=== PATIENT | female | born 1980 | race Caucasian/White ===

== ENCOUNTER 2017-08-28 13:19 | Emergency (ER) | payer BC ==
[2017-08-28] MEDS ORDERED: solu-MEDROL 125 MG IV ONE (13:21)
[2017-08-28] MEDS ORDERED: Pepcid 20 MG VIAL IV ONE ×2 (13:21→13:25)
[2017-08-28] MEDS ORDERED: Sodium Chloride 0.9% 1000 ML 1,000 ML IV STA (13:21)
[2017-08-28] MEDS ORDERED: BENADRYL 50 MG/ML IV ONE (13:21)
[2017-08-28] MEDS ORDERED: BENADRYL 50 MG/ML ONE (13:25)
[2017-08-28] MEDS ORDERED: solu-MEDROL 125 MG ONE (13:25)
[2017-08-28] MEDS ORDERED: Sodium Chloride 0.9% 1000 ML 1,000 ML ONE (13:25)
[2017-08-28 13:27] VITALS: O2SAT 100
[2017-08-28 13:35] LABS: Mean Cell Volume 84.8 fl (78-100); Mean Corpuscular Hemoglobin 27.5 pg (26-32); Mean Platelet Volume 9.8 fl (6-9.5); Platelet Count 405 K/mm3 (150-450); Red Blood Count 4.99 M/mm3 (4.1-5.4); Red Cell Distribution Width 14.3 % (11.5-14.0); White Blood Count 16.9 K/mm3 (4.0-10.5)
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
[2017-08-28 14:01] LABS: ANION GAP 14.2 MEQ/L (5-15); BLOOD UREA NITROGEN 11 mg/dL (9-20); CHLORIDE 106 mEq/L (98-107); Carbon Dioxide 25.6 mEq/L (21-32); Glucose 118 MG/DL (70-110); Potassium 3.1 mEq/L (3.5-5.1); SODIUM 143 mEq/L (136-145)
[2017-08-28 14:15] LABS: Platelet Estimate NORMAL (NORMAL); Total Cells Counted 100
[2017-08-28 14:25] VITALS: BP 122/76; PULSE 88
== END 2017-08-28 14:25 | disposition home or self-care (01) ==
LOC: ED 13:19
DX: T78.2XXA Anaphylactic shock, unspecified, initial encounter (principal)
CPT/HCPCS: 36000; 36415; 80048; 84703; 85025; 93041; 96360; 96374; 96375; 99284; J1200; J2930

== ENCOUNTER 2019-03-26 20:05 | Emergency (ER) | payer BC ==
[2019-03-26] MEDS ORDERED: TORAdol 30 mg Injection ONE ×2 (23:11→23:13)
[2019-03-26] MEDS: TORAdol 30 mg Injection IM ONE (23:13)
--- NOTE | 2019-03-26 23:53 | ERPHSYRPT ---
- History of Present Illness Source: patient Exam Limitations: no limitations Patient Subjective Stated Complaint: got dizzy and lightheaded, everything went fuzzy and fell on her hip today around 1930. fell directly on left hip, having lots of pain there. C/o dizziness off and on x2 weeks. Triage Nursing Assessment: lungs clear, no distress noted. heart tones regular , abd soft with active bs x4 quad. Pulses normal to lt dorsalis pedis. Pt c/o lt hip pain when sitting and rotated externall. Lt leg slightly shorter than right, but pt states that this is normal from femur fx. Physician History: Pt is a 39 y/o female that felt a little dizzy today, and she fell on her L hip. Secondary to multiple fractures in the past, including Femur fx on the L, the pt presented to the ED. Pt complains of pain to palpation of the L hip, and she has discomfort with ambulation and bearing weight on the L. Method of Injury: fell Occurred: just prior to arrival Quality: constant, sharpness, throbbing Lower Extremities Pain: hip: left (pain and decrease ROM) Modifying Factors: Improves With: cold therapy, immobilization, pain medication Associated Symptoms: none Allergies/Adverse Reactions: ondansetron HCl [From Zofran] Allergy (Mild, Verified 02/28/14 09:47) Nausea and Vomiting Penicillins Allergy (Mild, Verified 02/28/14 09:47) Hives Sulfa (Sulfonamide Antibiotics) Allergy (Mild, Verified 02/28/14 09:47) Hives cholestyramine [From Questran] Allergy (Verified 08/28/17 13:28) Shortness of Breath sucrose [From Questran] Allergy (Verified 08/28/17 13:28) Shortness of Breath Home Medications: Duloxetine HCl 30 mg [Cymbalta 30 MG Capsule] 30 mg PO BID 12/10/13 [ History] Hydroxychloroquine Sulfate [Plaquenil] 150 mg PO DAILY 08/28/17 [History] Clonazepam 1 mg PO HS 03/26/19 [History] Cyclobenzaprine HCl [Flexeril] 10 mg PO TID PRN 03/26/19 [History] Ergocalciferol (Vitamin D2) [Vitamin D] 50,000 units PO WEEKLY 03/26/19 [History ] Gabapentin 300 mg PO BID 03/26/19 [History] Gabapentin 600 mg PO HS 03/26/19 [History] Prednisone 5 mg [Deltasone 5 mg] 5 mg PO DAILY 03/26/19 [History] Hx Tetanus, Diphtheria Vaccination/Date Given: Yes Hx Influenza Vaccination/Date Given: No Hx Pneumococcal Vaccination/Date Given: No Immunizations Up to Date: Yes - Review of Systems Constitutional: No Fever, No Chills Eyes: No Symptoms Ears, Nose, & Throat: No Symptoms Respiratory: No Cough, No Dyspnea Cardiac: No Chest Pain, No Edema, No Syncope Abdominal/Gastrointestinal: No Abdominal Pain, No Nausea, No Vomiting, No Diarrhea Musculoskeletal: Arthralgias, Joint Pain (of the hip and pelvis on the L), Myalgias Skin: No Rash Neurological: No Dizziness, No Focal Weakness, No Sensory Changes - Past Medical History Pertinent Past Medical History: Yes Neurological History: No Pertinent History ENT History: No Pertinent History Cardiac History: No Pertinent History Respiratory History: No Pertinent History Endocrine Medical History: No Pertinent History Musculoskeletal History: Arthritis, Fractures GI Medical History: Gallbladder Disease History: No Pertinent History Psycho-Social History: Anxiety, Depression Female Reproductive Disorders: Abnormal Uterine Bleeding, Menstrual Problems Other Medical History: majority of cervix removed, lupus - Past Surgical History Past Surgical History: Yes Neuro Surgical History: No Pertinent History Cardiac: No Pertinent History Respiratory: No Pertinent History Gastrointestinal: Cholecystectomy Genitourinary: No Pertinent History Musculoskeletal: Orthopedic Surgery Female Surgical History: Section, Tubal Ligation Other Surgical History: breast biopsy, fx femur (fixation with kiley from lt hip to knee), kiley removed and new kiley put it. 2nd kiley removed. PCL reconstruction on Lt knee, meniscus repair x2 on lt knee, scope lt knee. Fx lt ankle. Fx medial/tibial plateau--repaired with small amt of hardware left. Fx rt hand x3. - Social History Smoking Status: Never smoker Exposure to second hand smoke: No Drug Use: none Patient Lives Alone: No - Female History Hx Last Menstrual Period: 03/25/19 Hx Now: No - Nursing Vital Signs Nursing Vital Signs: Initial Vital Signs Temperature 98.3 F 03/26/19 20:05 Pulse Rate 80 03/26/19 20:05 Respiratory Rate 16 03/26/19 20:05 Blood Pressure 124/72 03/26/19 20:05 O2 Sat by Pulse Oximetry 100 03/26/19 20:05 Pain Scale Pain Intensity 10 - Physical Exam General Appearance: alert Eyes, Ears, Nose, Throat Exam: moist mucous membranes Neck Exam: non-tender, supple Cardiovascular/Respiratory Exam: chest non-tender, normal breath sounds, regular rate/rhythm, no respiratory distress Gastrointestinal/Abdominal Exam: non-tender, guarding Hips Exam: left: bone tenderness, limited range of motion, pain, soft tissue tenderness Neuro/Tendon Exam: normal sensation, normal motor functions SpO2: 100 - Radiology Exams Left Hip X-ray Interpretation: Interpreted by me (No acute fracture of pelvis and hip) Ordered Tests: Active Orders 24 hr Category Date Time Status HIP UNI (2V) INCL PEL IF DONE Stat Exams 03/26/19 20:25 Taken HCG,QUALITATIVE URINE Stat Lab 03/26/19 Uncollected Medication Summary Discontinued Medications Generic Name Dose Route Start Last Admin Trade Name Freq PRN Reason Stop Dose Admin Ketorolac Tromethamine 60 mg 03/26/19 22:49 03/26/19 23:13 Toradol 30 Mg Injection IM 03/26/19 22:50 60 mg STAT ONE Administration Ketorolac Tromethamine Confirm 03/26/19 23:11 Toradol 30 Mg Injection Administered 03/26/19 23:12 Dose 30 mg .ROUTE .STK-MED ONE Ketorolac Tromethamine Confirm 03/26/19 23:13 Toradol 30 Mg Injection Administered 03/26/19 23:14 Dose 30 mg .ROUTE .STK-MED ONE - Progress Progress: improved Progress Note: 03/26/19 23:55 Pt had XR done that did not show any acute fx of hip or pelvis. She did get Toradol 60mg IM. She does have NSAIDs and muscle relaxant at home from her previous fractures. She is cleared for d/c and should f/u with her PCP in a week, if not improved. Will see patient in: office Counseled pt/family regarding: need for follow-up - Departure Departure Disposition: Home Clinical Impression: Injury of left hip Condition: Stable Critical Care Time: No Referrals: MAMADOU CHAPMAN [Primary Care Provider] - Additional Instructions: Use NSAIDs for pain, and muscle relaxants. F/U with PCP within a week. Elevate the leg and ice the hip.
[2019-03-27 00:22] VITALS: BP 124/73; PULSE 68; O2SAT 99
--- NOTE | 2019-03-27 08:50 | XRAY ---
Indication: Pain following fall. Syncopal episode. Comparison: None AP pelvis and 2 views of the left hip demonstrates well-circumscribed heterotopic ossifications adjacent to the left greater trochanter and left femur shaft presumed old injury. No other bony, articular, or soft tissue abnormalities.
== END 2019-03-27 00:28 | disposition home or self-care (01) ==
LOC: ED 20:05
DX: S79.912A Unspecified injury of left hip, initial encounter (principal); M25.552 Pain in left hip; W19.XXXA Unspecified fall, initial encounter
CPT/HCPCS: 73502; 84703; 96372; 99284; J1885

== ENCOUNTER 2020-09-14 17:31 | Emergency (ER) | payer BC ==
[2020-09-14 17:34] VITALS: BP 116/59; PULSE 67; O2SAT 98
[2020-09-14] MEDS ORDERED: Pepcid 20 MG VIAL IV ONE (17:48)
--- NOTE | 2020-09-14 17:48 | ERPHSYRPT ---
- History of Present Illness Time Seen by Provider: 09/14/20 17:35 Historian: patient Exam Limitations: no limitations Patient Subjective Stated Complaint: Pt has lupus and thinks that she is having a flair up, she has had diarrhea for the past 3 weeks and began vomiting this morning, pt went to the infusion center for fluids but continued to be sick and Dr. Lambert told her to come over to the ER from the infusion center Triage Nursing Assessment: Pt brought to the ER from the Infusion Center, vitals wnl, rates abdominal pain as 4/10, vomiting, diarrhea, pulses normal, skin n/w/d, bowel sounds heard in all 4 Physician History: Patient has had intermittent diarrhea for the past 3 weeks. Patient began having nausea and vomiting this morning, so she called her physician who had her sent over to the infusion center where she had a liter of fluids with labs drawn. Patient still had nausea and diarrhea did not improve so she was brought to the emergency room for further evaluation Timing/Duration: week(s) (three) Activities at Onset: none Quality: cramping Abdominal Pain Onset Location: other (none currently) Pain Radiation: no radiation Severity of Pain-Max: mild Severity of Pain-Current: none Associated Symptoms: diarrhea, nausea, vomiting, No back, No chest pain, No diaphoresis, No fever/chills, No fatigue, No headache, No heartburn, No loss of appetite, No neck pain, No rash, No shortness of breath, No syncope, No weakness Previous symptoms: same symptoms as today (from her lupus she has had similar symptoms), recently treated (1 liter of IV fluids) Allergies/Adverse Reactions: Penicillins Allergy (Mild, Verified 09/14/20 17:40) Hives Sulfa (Sulfonamide Antibiotics) Allergy (Mild, Verified 09/14/20 17:40) Hives cholestyramine [From Questran] Allergy (Verified 09/14/20 17:40) Shortness of Breath sucrose [From Questran] Allergy (Verified 09/14/20 17:40) Shortness of Breath Home Medications: Hydroxychloroquine Sulfate [Plaquenil] 200 mg PO DAILY 08/28/17 [History] Ergocalciferol (Vitamin D2) [Vitamin D] 50,000 units PO WEEKLY 03/26/19 [History] Gabapentin 300 mg PO HS 03/26/19 [History] Prednisone 5 mg [Deltasone 5 mg] 5 mg PO DAILY 03/26/19 [History] Hx Tetanus, Diphtheria Vaccination/Date Given: Yes Hx Influenza Vaccination/Date Given: No Hx Pneumococcal Vaccination/Date Given: No Travel Risk - International Travel Have you traveled outside of the country in past 3 weeks: No - Coronavirus Screening Are you exhibiting any of the following symptoms?: No Close contact with a COVID-19 positive Pt in past 14-21 Days: No - Review of Systems Constitutional: No Fever, No Chills Eyes: No Eye Redness, No Vision Changes Ears, Nose, & Throat: No Nose Congestion, No Mouth Swelling, No Throat Pain, No Painful Swallowing Respiratory: No Cough, No Dyspnea Cardiac: No Chest Pain, No Edema, No Syncope Abdominal/Gastrointestinal: Nausea, Vomiting, Diarrhea, No Abdominal Pain, No Hematemesis, No Hematochezia, No Melena Genitourinary Symptoms: No Dysuria, No Hematuria, No Flank Pain Musculoskeletal: No Back Pain, No Neck Pain Skin: No Rash Neurological: No Dizziness, No Focal Weakness, No Sensory Changes Psychological: No Symptoms Endocrine: No Polyuria, No Polydipsia Hematologic/Lymphatic: No Easy Bleeding, No Easy Bruising All Other Systems: Reviewed and Negative - Past Medical History Pertinent Past Medical History: Yes Neurological History: No Pertinent History ENT History: No Pertinent History Cardiac History: No Pertinent History Respiratory History: No Pertinent History Endocrine Medical History: No Pertinent History Musculoskeletal History: Arthritis, Fractures GI Medical History: Gallbladder Disease History: No Pertinent History Psycho-Social History: Anxiety, Depression Female Reproductive Disorders: Abnormal Uterine Bleeding, Menstrual Problems Other Medical History: majority of cervix removed, lupus - Past Surgical History Past Surgical History: Yes Neuro Surgical History: No Pertinent History Cardiac: No Pertinent History Respiratory: No Pertinent History Gastrointestinal: Cholecystectomy Genitourinary: No Pertinent History Musculoskeletal: Orthopedic Surgery Female Surgical History: Hysterectomy, Section, Tubal Ligation Other Surgical History: breast biopsy, fx femur (fixation with kiley from lt hip to knee), kiley removed and new kiley put it. 2nd kiley removed. PCL reconstruction on Lt knee, meniscus repair x2 on lt knee, scope lt knee. Fx lt ankle. Fx medial/tibial plateau--repaired with small amt of hardware left. Fx rt hand x3. - Social History Smoking Status: Never smoker Exposure to second hand smoke: No Drug Use: none Patient Lives Alone: No - Female History Hx Now: No (hysterectomy) - Nursing Vital Signs Nursing Vital Signs: Initial Vital Signs Temperature 99.0 F 09/14/20 17:32 Pulse Rate 67 09/14/20 17:32 Blood Pressure 116/59 09/14/20 17:32 O2 Sat by Pulse Oximetry 98 09/14/20 17:32 Pain Scale Pain Intensity 4 - Physical Exam General Appearance: no apparent distress, alert Eye Exam: PERRL/EOMI, eyes nml inspection, No scleral icterus Ears, Nose, Throat Exam: normal ENT inspection, TMs normal, pharynx normal, moist mucous membranes Neck Exam: normal inspection, non-tender, supple, full range of motion, No meningismus, No Brudzinski, No lymphadenopathy Respiratory Exam: normal breath sounds, lungs clear, airway intact, No respiratory distress, No diminished breath sounds, No crackles/rales, No rhonchi, No wheezing Cardiovascular Exam: regular rate/rhythm, normal heart sounds, normal peripheral pulses Gastrointestinal/Abdomen Exam: soft, normal bowel sounds, No tenderness, No distention, No mass, No guarding Back Exam: normal inspection, normal range of motion, No CVA tenderness, No vertebral tenderness Extremity Exam: normal inspection, normal range of motion, pelvis stable Neurologic Exam: alert, oriented x 3, cooperative, ophthalmic surgical assistant II-XII nml as tested, normal mood/affect, sensation nml, No motor deficits Skin Exam: normal color, warm, dry, No rash, No petechiae Lymphatic Exam: other SpO2 Interpretation: normal SpO2: 98 O2 Delivery: Room Air Ordered Tests: Active Orders 24 hr Category Date Time Status HCG,QUALITATIVE URINE Stat Lab 09/14/20 18:16 Completed Lactic Acid Stat Lab 09/14/20 17:54 Completed UA W/RFX UR CULTURE Stat Lab 09/14/20 18:16 Completed Medication Summary Discontinued Medications Generic Name Dose Route Start Last Admin Trade Name Freq PRN Reason Stop Dose Admin Famotidine 20 mg 09/14/20 17:41 09/14/20 17:53 Pepcid 20 Mg Vial IV 09/14/20 17:42 20 mg STAT ONE Administration Famotidine Confirm 09/14/20 17:48 Pepcid 20 Mg Vial Administered 09/14/20 17:49 Dose 20 mg IV .STK-MED ONE Sodium Chloride 1,000 mls @ 999 mls/hr 09/14/20 17:41 09/14/20 17:54 Sodium Chloride 0.9% 1000 Ml IV 09/14/20 18:41 999 mls/hr .Q1H1M STA Administration Sodium Chloride Confirm 09/14/20 17:49 Sodium Chloride 0.9% 1000 Ml Administered 09/14/20 17:50 Dose 1,000 mls @ ud .ROUTE .STK-MED ONE Morphine Sulfate 4 mg 09/14/20 17:41 09/14/20 17:53 Morphine Sulfate 4 Mg Inj IV 09/14/20 17:42 4 mg STAT ONE Administration Morphine Sulfate Confirm 09/14/20 17:49 Morphine Sulfate 4 Mg Inj Administered 09/14/20 17:50 Dose 4 mg .ROUTE .STK-MED ONE Prochlorperazine Edisylate 10 mg 09/14/20 17:42 09/14/20 17:53 Compazine 10 Mg/2 Ml IV 09/14/20 17:43 10 mg STAT ONE Administration Prochlorperazine Edisylate Confirm 09/14/20 17:49 Compazine 10 Mg/2 Ml Administered 09/14/20 17:50 Dose 10 mg .ROUTE .STK-MED ONE Lab/Rad Data: Laboratory Results 09/14/20 09/14/20 09/14/20 Range/Units 18:16 18:16 17:54 Lactic Acid 0.6 (0.4-2.0) Urine Color STRAW (YELLOW) Urine Appearance SLIGHTLY CLOUDY (CLEAR) Urine pH 9.0 (5-6) Ur Specific [place] 1.005 (1.005-1.025) Urine Protein NEGATIVE (Negative) Urine Ketones TRACE (NEGATIVE) Urine Blood NEGATIVE (0-5) Trip/ul Urine Nitrite NEGATIVE (NEGATIVE) Urine Bilirubin NEGATIVE (NEGATIVE) Urine Urobilinogen NEGATIVE (0-1) mg/dL Ur Leukocyte Esterase NEGATIVE (NEGATIVE) Urine WBC (Auto) NONE (0-5) /HPF Urine RBC (Auto) 0-2 (0-2) /HPF U Epithel Cells (Auto) RARE (FEW) /HPF Urine Bacteria (Auto) RARE (NEGATIVE) /HPF Urine Culture Reflexed NO (NO) Urine Glucose NEGATIVE (NEGATIVE) mg/dL Urine HCG, Qual NEGATIVE (Negative) CBC: Normal white blood cell count: 8.1, H&H: 14.0/43.8, platelet: 284; CMP: BUN 9, creatinine: 0.8; sodium 139, potassium 3.6, chloride 99, CO2 33, calcium 9.3, total protein 7.3, albumin 4.4, total bilirubin 1.9, AST 22, ALT 18, alk phos 64, amylase 70, lipase 116, anion gap 10.3; only abnormal is the elevated total bilirubin and CO2 elevated at 33 - Progress Progress: improved Progress Note: 09/14/20 18:40 Patient feels much better after IV medications for nausea, pain resolution as well as slowing down diarrhea. Patient was not able to give us any stool for a C. difficile study after the medication. 09/14/20 18:55 Patient is a 40-year-old female with lupus who has flareup of diarrhea when she has flareups of her lupus who has had intermittent diarrhea for last 3 weeks with nausea and vomiting began today. Her primary care physician gave her a liter of fluids with lab work that was uneventful including a normal CBC, CMP, amylase and lipase, but without resolution of her symptoms she was brought to the emergency room for further evaluation and treatment. No specific abnormalities were found on her vitals, hemodynamics or examination, so fluids were continued and patient was given Compazine, Pepcid and Dilaudid to help with her symptoms which resolved all of her symptoms and she had no further diarrhea or nausea with no vomiting episodes while in the emergency department. Patient had a lactic acid that was normal and urinalysis that was negative for any abnormal findings with a negative urine hCG which was consistent with her hysterectomy history. Patient is at times not require any imaging studies of her abdomen and she was not able to give us a stool study to check for C. difficile at this time. Patient to follow-up with her primary care provider in 2 days I gave her a short supply of Lomotil to help with her diarrhea, Phenergan to help with her nausea and vomiting since the Compazine helped her, and a 3- day burst of prednisone 6 mg once daily to help with her potential lupus flare. I reviewed the patient in detail what signs and symptoms to return back to the emergency department. At this time, patient not require inpatient admission, mediates surgical evaluation by general surgery or any other further imaging studies at this time due to her labs being normal including normal white blood cell count, normal lactic acid, FTs and normal amylase and lipase Counseled pt/family regarding: lab results, diagnosis, need for follow-up - Departure Departure Disposition: Home Clinical Impression: Diarrhea Qualifiers: Diarrhea type: unspecified type Qualified Code(s): R19.7 - Diarrhea, unspecified Nausea & vomiting Qualifiers: Vomiting type: unspecified Vomiting Intractability: non-intractable Qualified Code(s): R11.2 - Nausea with vomiting, unspecified Condition: Good Critical Care Time: No Referrals: KEYONNA LAMBERT MD [Primary Care Provider] - 09/16/20 Instructions: Diarrhea in Adolescents and Adults, Dehydration, Adult (DC), Nausea and Vomiting, Adult (DC) Additional Instructions: Return immediately back to the emergency room for having uncontrollable diarrhea, vomiting, new abdominal pain, new fever, any blood in stool, new blood in the urine, new back pain, new chest pain, new shortness of breath, new coughing up blood, new fever or any other concerning signs or symptoms that were not present at today's emergency room visit for immediate reevaluation in the em ergency department Prescriptions: Promethazine HCl 25 mg [Phenergan 25 mg] 25 mg PO Q6H PRN PRN #12 tablet PRN Reason: Nausea Prednisone 20 mg [Deltasone 20 mg] 60 mg PO DAILY PRN #9 tablet PRN Reason: Sore Throat Relief Diphenoxylate HCl/Atropine [Lomotil Tablet] 1 each PO TID PRN #10 tablet PRN Reason: Diarrhea
[2020-09-14] MEDS ORDERED: Compazine 10 MG/2 ML ONE (17:49)
[2020-09-14] MEDS ORDERED: Sodium Chloride 0.9% 1000 ML 1,000 ML ONE (17:49)
[2020-09-14] MEDS ORDERED: MORPHINE SULFATE 4 MG INJ ONE (17:49)
[2020-09-14] MEDS: Pepcid 20 MG VIAL IV ONE (17:53)
[2020-09-14] MEDS: Compazine 10 MG/2 ML IV ONE (17:53)
[2020-09-14] MEDS: MORPHINE SULFATE 4 MG INJ IV ONE (17:53)
[2020-09-14] MEDS: Sodium Chloride 0.9% 1000 ML 1,000 ML IV STA (17:54)
[2020-09-14 18:34] LABS: Appearance SLIGHTLY CLOUDY (CLEAR); Bacteria RARE /HPF (NEGATIVE); Bilirubin NEGATIVE (NEGATIVE); Blood NEGATIVE Ery/ul (0-5); Epithelial Cells RARE /HPF (FEW); Glucose NEGATIVE (NEGATIVE); Ketones TRACE (NEGATIVE); Leukocyte Esterase NEGATIVE (NEGATIVE); Nitrite NEGATIVE (NEGATIVE); Protein,Urine Dip NEGATIVE (Negative); RBC 0-2 /HPF (0-2); Specific Gravity 1.005 (1.005-1.025); Urobilinogen NEGATIVE mg/dL (0-1)
== END 2020-09-14 19:10 | disposition home or self-care (01) ==
LOC: ED 17:31
DX: R19.7 Diarrhea, unspecified (principal); R11.2 Nausea with vomiting, unspecified; Z79.899 Other long term (current) drug therapy
CPT/HCPCS: 36415; 80053; 81001; 81003; 82150; 83605; 83690; 84703; 85025; 96360; 96361; 96374; 96375; 99211; 99284; G0378; J2270

== ENCOUNTER 2023-08-30 06:03 | Day surgery (SDC) | payer BC ==
[~2023-08-30 06:03] MED LIST: Lactated Ringers 1,000 ML IV SCH
[2023-08-30] MEDS ORDERED: DIPRIVAN 200 MG/20 ML IV ONE ×2 (07:22→07:56)
[2023-08-30] MEDS ORDERED: Xylocaine-Mpf 2% 5 Ml Vial ONE (07:22)
[2023-08-30] MEDS ORDERED: Zofran 4 MG/2 ML VIAL ONE (08:15)
[2023-08-30 08:41] VITALS: O2SAT 100
[2023-08-30 09:11] VITALS: TEMP 97.8
[2023-08-30 09:19] VITALS: BP 118/68; PULSE 72; RESP 18
--- NOTE | 2023-08-30 09:41 | OP ---
SURGERY DATE/TIME: 08/30/2023 0741 PREOPERATIVE DIAGNOSIS: History of colon polyps. POSTOPERATIVE DIAGNOSIS: Transverse colon polyp. PROCEDURE: Colonoscopy. SURGEON: Cash Monteiro M.D. ANESTHESIA: MAC by Jorge Ovalle CRNA. ESTIMATED BLOOD LOSS: Minimal. SPECIMEN: There is a hot forceps polypectomy proximal transverse colon. DESCRIPTION OF PROCEDURE: After informed written consent was obtained, the patient was taken to the endoscopy suite. She was placed in left lateral decubitus position and anesthesia was titrated to desired level of consciousness. Digital rectal exam showed normal sphincter tone and no internal lesions. The scope was inserted into the rectum and sequentially the entire colonic mucosa was traversed. The level of cecum was reached and verified with direct visualization of the ileocecal valve. Upon withdrawal a small sessile polyp was present in the proximal transverse colon near the hepatic flexure. It was grasped with forceps, cauterized and removed in its entirety and sent for pathology testing. The entire lesion was removed and the area was hemostatic following removal. The remainder of the mucosa was within normal limits. Prep was noted to be good. Prior to withdrawal retroflexion showed no internal lesions. The scope was removed and the patient was transferred to the recovery room in good condition.
== END 2023-08-30 09:20 | disposition home or self-care (01) ==
LOC: SDC 06:03
PROVIDERS: ATTEND Family Medicine
DX: Z09 Encounter for follow-up examination after completed treatment for conditions other than malignant neoplasm (principal); Z86.010 Personal history of colon polyps; D12.3 Benign neoplasm of transverse colon
CPT/HCPCS: 93005; J2405; J2704

== ENCOUNTER 2023-09-22 20:38 | Emergency (ER) | payer BC ==
--- NOTE | 2023-09-22 20:47 | ERPHSYRPT ---
- History of Present Illness Time Seen by Provider: 09/22/23 20:47 Source: patient Exam Limitations: no limitations Physician History: This is an overweight 43-year-old white female patient who missed a curb when walking and felt a popping sensation in her left posterior knee where she has had a posterior cruciate ligament repair in the past. She also has pain in her left ankle. Patient has history of migraine headache, anxiety and lupus. Method of Injury: fell Occurred: just prior to arrival Quality: aching Severity of Pain-Max: mild (To moderate) Severity of Pain-Current: mild Lower Extremities Pain: knee: left, ankle: left Modifying Factors: Improves With: movement Associated Symptoms: popping sensation (Left knee), other (Urged to bear weight) Allergies/Adverse Reactions: Penicillins Allergy (Mild, Verified 09/22/23 20:43) Hives Sulfa (Sulfonamide Antibiotics) Allergy (Mild, Verified 09/22/23 20:43) Hives amoxicillin Allergy (Verified 09/22/23 20:43) Shortness of Breath cholestyramine [From Questran] Allergy (Verified 09/22/23 20:43) Shortness of Breath sucrose [From Questran] Allergy (Verified 09/22/23 20:43) Shortness of Breath Home Medications: Hydroxychloroquine Sulfate [Plaquenil] 200 mg PO DAILY 08/28/17 [History] Metoprolol Succinate 25 mg PO DAILY 08/04/23 [History] Ubrogepant [Ubrelvy] 100 mg PO DAILY PRN PRN 08/04/23 [History] Hx Tetanus, Diphtheria Vaccination/Date Given: Yes Hx Influenza Vaccination/Date Given: No Hx Pneumococcal Vaccination/Date Given: No Travel Risk - International Travel Have you traveled outside of the country in past 3 weeks: No - Coronavirus Screening Are you exhibiting any of the following symptoms?: No Close contact with a COVID-19 positive Pt in past 14-21 Days: No - Review of Systems Constitutional: No Symptoms Eyes: No Symptoms Ears, Nose, & Throat: No Symptoms Respiratory: No Symptoms Cardiac: No Symptoms Abdominal/Gastrointestinal: No Symptoms Genitourinary Symptoms: No Symptoms Musculoskeletal: Fall, Injury (Left knee and left ankle) Skin: No Symptoms Neurological: No Symptoms Psychological: No Symptoms Endocrine: No Symptoms Hematologic/Lymphatic: No Symptoms Immunological/Allergic: No Symptoms All Other Systems: Reviewed and Negative - Past Medical History Pertinent Past Medical History: Yes Neurological History: Migraines ENT History: No Pertinent History Cardiac History: No Pertinent History Respiratory History: No Pertinent History Endocrine Medical History: No Pertinent History Musculoskeletal History: Arthritis, Fractures GI Medical History: Gallbladder Disease History: No Pertinent History Psycho-Social History: Anxiety, Depression Female Reproductive Disorders: Abnormal Uterine Bleeding, Menstrual Problems Other Medical History: majority of cervix removed, lupus, - Past Surgical History Past Surgical History: Yes Neuro Surgical History: No Pertinent History Cardiac: No Pertinent History Respiratory: No Pertinent History Gastrointestinal: Cholecystectomy Genitourinary: No Pertinent History Musculoskeletal: Orthopedic Surgery Female Surgical History: Hysterectomy, Section, Tubal Ligation Other Surgical History: breast biopsy, fx femur (fixation with kiley from lt hip to knee), kiley removed and new kiley put it. 2nd kiley removed. PCL reconstruction on Lt knee, meniscus repair x2 on lt knee, scope lt knee. Fx lt ankle. Fx medial/tibial plateau--repaired with small amt of hardware left. Fx rt hand x3. - Social History Smoking Status: Never smoker Exposure to second hand smoke: No Drug Use: none Patient Lives Alone: No - Nursing Vital Signs Nursing Vital Signs: Initial Vital Signs Temperature 97.3 F 09/22/23 20:44 Pulse Rate 100 H 09/22/23 20:44 Respiratory Rate 16 09/22/23 20:44 Blood Pressure 122/81 09/22/23 20:44 O2 Sat by Pulse Oximetry 100 09/22/23 20:44 Pain Scale Pain Intensity 7 - Physical Exam General Appearance: no apparent distress, alert, anxiety Eyes, Ears, Nose, Throat Exam: normal ENT inspection, moist mucous membranes Neck Exam: normal inspection, non-tender, supple, full range of motion Cardiovascular/Respiratory Exam: chest non-tender, no respiratory distress Gastrointestinal/Abdominal Exam: non-tender Back Exam: normal inspection, normal range of motion, No CVA tenderness, No vertebral tenderness Hips Exam: bilateral: non-tender, normal inspection, normal range of motion, no evidence of injury Legs Exam: bilateral leg: non-tender, normal inspection, normal range of motion, no evidence of injury Knees Exam: right knee: non-tender, left knee: soft tissue tenderness (Posteriorly), bilateral knee: normal inspection, normal range of motion, no evidence of injury Ankle Exam: right ankle: non-tender, normal inspection, no evidence of injury, left ankle: soft tissue tenderness, swelling, bilateral ankle: normal range of motion Foot Exam: bilateral foot: non-tender, normal inspection, normal range of motion, no evidence of injury Neuro/Tendon Exam: normal sensation, normal motor functions, normal tendon functions, responds to pain, no response to pain Mental Status Exam: alert, oriented x 3, cooperative Skin Exam: normal color, warm, dry SpO2 Interpretation: normal O2 Delivery: Room Air - Course Nursing assessment & vital signs reviewed: Yes Ordered Tests: Active Orders 24 hr Category Date Time Status Wound Care STAT Care 09/22/23 21:11 Active ANKLE (3 VIEWS) Stat Exams 09/22/23 21:09 Taken KNEE (1 OR 2 VIEW) Stat Exams 09/22/23 21:09 Taken Medication Summary Generic Name Dose Route Start Last Admin Trade Name Freq PRN Reason Stop Dose Admin Hydrocodone Bitart/Acetaminophen 1 tab 09/22/23 22:21 Hydrocodone/Apap 5/325 1 Tab Tablet PO 09/22/23 22:22 STAT ONE Discontinued Medications Generic Name Dose Route Start Last Admin Trade Name Freq PRN Reason Stop Dose Admin Hydrocodone Bitart/Acetaminophen 2 tab 09/22/23 22:20 Hydrocodone/Apap 5/325 1 Tab Tablet PO 09/22/23 22:21 SENT HOME W/ PATIENT ONE - Progress Progress: pain not gone completely Progress Note: 09/22/23 21:14 Patient's medical issue is 1 of low complexity. The level complex in the work- up performed is based on review of the patient's past medical history, review the patient's medication list, review of the patient's drug allergy list, history of present illness and physical findings on examination. The work-up includes radiographic studies of the left knee and left ankle. No laboratory studies are necessary in this patient. 09/22/23 22:10 X-ray of the left ankle shows no acute fracture or dislocation. X-ray of the left knee shows no acute fracture or dislocation. The hardware appears to to be in the appropriate position. Counseled pt/family regarding: diagnosis, need for follow-up, rad results Medical Desision Making - Diagnostic Testing Diagnostic test were ordered, analyzed, and reviewed by me: Yes Radiological Interpretation: Interpreted by me - Risk of complications Minimal Risk: Minimal risk of morbidity - Departure Departure Disposition: Home Clinical Impression: Left knee pain, Left ankle pain Condition: Stable Critical Care Time: No Referrals: MARCEL GANT MD [Primary Care Provider] - Follow up/PCP as directed Additional Instructions: Ice pack to tender areas 3 times a day for the next 48 hours. Use Tylenol and ibuprofen for pain control. Follow-up with your primary care provider on 09/25/2023 for further evaluation management. Radiologist will provide a final reading tomorrow, 09/23/2023. If the interpretation is different than we provided tonight, you will receive a phone call.
[2023-09-22 20:56] VITALS: TEMP 97.3
[2023-09-22] MEDS ORDERED: NORCO 5/325 MG PO ONE ×2 (22:20→22:21)
[2023-09-22] MEDS ORDERED: NORCO 5/325 MG ONE (22:23)
[2023-09-22 23:16] VITALS: BP 116/58; PULSE 76; RESP 16; O2SAT 99
--- NOTE | 2023-09-23 08:15 | XRAY ---
Indication: Pain following injury. Comparison: None 2 view left knee demonstrates prior ACL reconstructive surgery with medial condyle orthopedic button, incompletely visualized old distal femur shaft fracture, and small fabella. No other bony, articular, or soft tissue abnormalities.
--- NOTE | 2023-09-23 08:17 | XRAY ---
Indication: Pain following injury. Comparison: October 07, 2017 3 view left ankle again demonstrates tiny lateral malleolus tip heterotopic ossification either degenerative versus old injury. No new/acute bony, articular, or soft tissue abnormalities.
== END 2023-09-22 23:16 | disposition home or self-care (01) ==
LOC: ED 20:38
DX: M25.562 Pain in left knee (principal); M25.572 Pain in left ankle and joints of left foot; Z79.899 Other long term (current) drug therapy
CPT/HCPCS: 73560; 73610; 99283; A9270-GY